=== PATIENT | female | born 2000 | race Asian ===

== ENCOUNTER 2023-12-21 12:37 | Emergency (ER) | payer BC ==
[~2023-12-21] VITALS: Ht 160 cm; Wt 61.2 kg
[2023-12-21 12:46] VITALS: BP_SYST 114; PULSE 78; RESP 16; TEMP 98; O2SAT 98
[2023-12-21] MEDS ORDERED: NITR-85 PO (13:05)
[2023-12-21 13:30] VITALS: BP_SYST 114; PULSE 78; RESP 16; TEMP 98; O2SAT 98
== END 2023-12-21 13:32 | disposition home or self-care (01) ==
LOC: SED 12:37
DX: N39.0 Urinary tract infection, site not specified (principal)
CPT/HCPCS: 99283